=== PATIENT | female | born 1975 | race Caucasian/White ===

== ENCOUNTER 2017-05-18 14:53 | Inpatient (IN) | payer BC, OTHER ==
[~2017-05-18] VITALS: Ht 157.5 cm; Wt 45.4 kg
[2017-05-19 00:40] LABS: *URINE HCG, QUAL NEGATIVE (NEGATIVE)
--- NOTE | 2017-05-19 00:40 | NUR ---
PREADMISSION NOTE: 42 year old, healthy-looking, alert, well nourished caucasion female, seen in [facility] office. Patient denies any food or drug allergies and she states that she had " a few seizures as a child" only. Patient states, " I was about [age] years old and I was taking phenobarbital for awhile then". Patient denies any pre-existing medical or psychiatric conditions and she states that she takes no medications at home. Vital signs are: 96.8-99-18 108/59, O2 Sat 97%. Explanations given to patient regarding [facility] floor protocols ( Q4 hr V/S, medication reconciliation protocols, etc.). Patient states, " okay". Patient brought no medications with her and she denies any pain at this time.
--- NOTE | 2017-05-19 00:52 | NUR ---
0052 ADMISSION NOTE: Patient admitted ambulatory, to [facility], to room # 305, after being given a brief tour of floor by female PANTRY CHEF. Gait is steady, brisk. Patient is alert and oriented to person, place, day, date, time and her personal situation. Patient oriented to nurse call light, her bed and room. Patient denies any pain or other discomforts, but states that she is feeling sleepy now. Patient states that this admission is her first detox inpatient admission. Patient is admitted for (1) Alcohol, p.o., 3 beers daily for the past 30 days. Last alcohol intake was on 05/18/17, (1) mixed drink. Patient had her first drink at age 13. (2) Meth, snorted and smoked, daily " maybe a quarter, a small amount", for the past 14 months. Patient first tried Meth at age 16. Patient states that her steady use of these (2) substances was triggered by her 's infidelity mainly. Patient states that her longest period of sobriety was from 2009 to 2015. Vital signs are: 97.5-93-18 107/77, O2 Sat 100%, CIWA 3. Patient is 5 feet and 2 inches, and she weighs 100 lbs. 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 Patient did not name a PCP, though she did state that she has a sponsor and attends AA/NA meetings. Urine specimen obtained for UDS in Intake. Patient is friendly, cooperative and verbally appropriate when interacting with nurse, though her affect is slightly anxious and she is hyperverbal. When she is asked almost any question, she elaborates almost all her answers and must be prompted to refocus. Patient given water, juice and string cheese per request. Patient states, " I didn't eat most of the day". Bed is locked and in lowest position, padded bed rails are put up X 2 and call light on patient's bed. Fall/seizure precautions in place.
[2017-05-19 01:15] LABS: *AMPHETAMINE, URINE POSITIVE (NEGATIVE); *BARBITURATE, URINE NEGATIVE (NEGATIVE); *CANNABINOID, URINE NEGATIVE (NEGATIVE); *COCCAINE, URINE NEGATIVE (NEGATIVE); *OPIATE, URINE NEGATIVE (NEGATIVE); *PHENCYCLIDINE SCREEN,URINE NEGATIVE (NEGATIVE)
--- NOTE | 2017-05-19 01:30 | NUR ---
On the way back to [facility] floor from [facility] smoke break, patient was taken by floor ARCHITECTURE MANAGER ,to laboratory for admission blood work, where patient began to feel very lightheaded, very shortly after her blood was drawn. Patient's clothing was readjusted for coolness, patient was given juice and she was then assisted into wheelchair, and wheeled back to her room # 305 and assisted into her bed. Patient states, " I'm starting to feel much better now. I didn't really eat all day. Can I have some string cheese and crackers?" String cheese and crackers given per request. Bed rails up X 2 and call light in patient's easy reach.
[2017-05-19] MEDS ORDERED: THIAMINE HCL 200 MG/2 ML VIAL ONE (01:39)
[2017-05-19 01:53] LABS: BASOPHILS % (AUTO) 0.9 % (0.0-2.0); HEMATOCRIT 36.4 % (37-47); HEMOGLOBIN 12.7 G/DL (12.0-16.0); MEAN CORPUSCULAR HEMOGLOBIN 30.9 UUG (27.0-31.0); MEAN CORPUSCULAR HGB CONC 35 g/dL (32.0-37.0); MEAN CORPUSCULAR VOLUME 88.6 FL (81.0-99.0); NEUTROPHILS % (AUTO) 45.3 % (38.5-71.5); PLATELET COUNT (AUTO) 256 K/UL (150-450); RED BLOOD CELL COUNT(AUTO) 4.11 MIL/UL (4.2-5.4); WHITE BLOOD COUNT (AUTO) 5.8 K/UL (4.0-11.2)
[2017-05-19] MEDS ORDERED: IBUPROFEN 400 MG TABLET PO PRN (02:00)
[2017-05-19] MEDS ORDERED: LORAZEPAM 1 MG TABLET PO PRN ×2 (02:00)
[2017-05-19] MEDS ORDERED: LOPERAMIDE HCL 2 MG CAPSULE PO PRN ×2 (02:00)
[2017-05-19] MEDS ORDERED: HYDROXYZINE PAMOATE 25 MG CAPSULE PO PRN (02:00)
[2017-05-19] MEDS ORDERED: ONDANSETRON ODT 4 MG TAB.RAPDIS SL PRN (02:00)
[2017-05-19] MEDS ORDERED: MAG HYDROX/AL HYDROX/SIMETH 30 ML LIQUID UDC PO PRN (02:00)
[2017-05-19] MEDS ORDERED: LORAZEPAM 2 MG/1 ML VIAL IM PRN (02:00)
[2017-05-19] MEDS ORDERED: CLONIDINE HCL 0.1 MG TABLET PO PRN (02:00)
[2017-05-19] MEDS ORDERED: MAGNESIUM HYDROXIDE 30 ML LIQUID UDC PO PRN (02:00)
[2017-05-19] MEDS ORDERED: DICYCLOMINE HCL 20 MG TABLET PO PRN (02:00)
[2017-05-19] MEDS ORDERED: MIRALAX 17 GM POWD.PACK PO PRN (02:00)
[2017-05-19] MEDS ORDERED: THIAMINE HCL 200 MG/2 ML VIAL IM ONE (02:00)
[2017-05-19] MEDS ORDERED: ONDANSETRON 4 MG/2 ML VIAL IM PRN (02:00)
[2017-05-19] MEDS ORDERED: ACETAMINOPHEN 325 MG TABLET PO PRN (02:00)
[2017-05-19] MEDS ORDERED: diphenhydrAMINE 50 MG CAPSULE PO PRN (02:00)
[2017-05-19 02:05] LABS: ALANINE AMINOTRANSFERASE 19 U/L (14-59); ALKALINE PHOSPHATASE 92 U/L (50-136); AMYLASE 32 U/L (25-115); ASPARTATE AMINOTRANSFERASE 19 U/L (15-37); BILIRUBIN,TOTAL 0.2 mg/dL (0.2-1.0); CARBON DIOXIDE 32 mmol/L (21-32); CHLORIDE 104 mmol/L (98-107); CREATININE 1.1 mg/dL (0.6-1.3); GLUCOSE 93 mg/dL (74-106); LIPASE 128 U/L (73-393); POTASSIUM 3.6 mmol/L (3.5-5.1); TOTAL PROTEIN, SERUM 7.7 g/dL (6.4-8.2); UREA NITROGEN, BLOOD 17 mg/dL (7-18)
[2017-05-19 02:12] LABS: THYROID STIMULATING HORMONE 1.883 mIU/mL (0.358-3.740)
[2017-05-19 02:22] LABS: ETHANOL < 3 MG/DL (0-0)
[2017-05-19 04:00] VITALS: BP 90/60
--- NOTE | 2017-05-19 04:00 | NUR ---
V/S are: 98.2-70-12 90/60, O2 Sat 99%. Patient refused to do CIWA assess.
--- NOTE | 2017-05-19 06:30 | NUR ---
0630 Patient slept a total of 5 hours and she had 2 voids and 1 stools. Total intake was 500 ml p.o. No prn medications given this shift. V/SS afebrile, last CIWA was 3 at 0052. Patient refused to do CIWA assess at 0400. Patient is presently sleeping comfortably in stable condition with eyes closed and respirations quiet, even, unlabored at 12.
--- NOTE | 2017-05-19 07:05 | NUR ---
Patient sleeping soundly and not aroused for CIWA assess. CIWA assess ordered Q 4hr while awake.
--- NOTE | 2017-05-19 07:50 | NUR ---
START OF SHIFT NOTE Received report from night nurse, 42 year old female admitted for ETOH/Meth dependence. Patient currently not on any taper but PRN'S available for increased s/s of withdrawal. Per endorsement pt did not receive any PRN medication, last CIWA was 3, Slept for 5 hours. Patient received awake,alert and oriented x4, Educated patient regarding plan of care for the day and medication regimen with good verbal understanding. Safety measures in place. call light with in reach, will continue to monitor.
[2017-05-19 08:00] VITALS: BP 125/80
[2017-05-19] MEDS: THIAMINE HCL 100 MG TABLET PO SCH (08:44)
[2017-05-19] MEDS: FOLIC ACID 1 MG TABLET PO SCH (08:44)
[2017-05-19] MEDS: MULTIVITAMINS,THERAPEUTIC TABLET PO SCH (08:44)
[2017-05-19 12:00] VITALS: BP 102/62
[2017-05-19] MEDS ORDERED: NICOTINE 14 MG/24HR PATCH TD PRN (12:15)
[2017-05-19] MEDS ORDERED: NICOTINE POLACRILEX 4 MG GUM-PK OF TEN BC PRN (12:15)
--- NOTE | 2017-05-19 14:21 | NUR ---
Therapist prompted client about group times. Client stated she will attend group this afternoon.
[2017-05-19 16:00] VITALS: BP 103/60
--- NOTE | 2017-05-19 18:57 | NUR ---
END OF SHIFT NOTE Patient admitted for ETOH/Marijuana dependence. Patient currently not in any taper but PRN'S available for increased s/s of withdrawal. Pt did not receive any PRN during shift. Pt compliant with medication and plan of care. Encouraged Po fluids as tolerated. Pt's last CIWA score was 3 at 1600. Vital signs WNL. All needs met. Safety measures in place, call light within reach. Pt endorsed to night nurse in stable condition.
[2017-05-19 20:00] VITALS: BP 114/71
--- NOTE | 2017-05-19 20:00 | NUR ---
1999 Patient received awake, alert and just returning to her room # 305, from [facility] group in recreation room. Gait is brisk and steady. Upon seeing nurse, patient smiles and states, " Hi, I had a pretty good day today". Patient then proceeded to tell nurse about everything that she had done during the day. Patient states that she ate very well today, her regular diet " lunch downstairs" and her dinner tonight, and she is taking various fluids ad ninoska with no gastric issues. Patient states also, " I got some good rest too, so I'm feeling pretty good right now". Patient's color is tannish-pink and her skin is clean, warm, dry and intact. Patient is oriented to person, place, day,date, time and her personal situation. Patient denies any pain or other discomforts and she voices no requests for anything at this time. Vital signs are: 97.8-90-14 114/71, O2 Sat 100%, CIWA 2. Patient was admitted on 05/18/17 for Alcohol and Methamphetamine withdrawal and she is currently on PRN medications for withdrawal symptoms. Bed is locked and in lowest position, padded bed rails are up X 2 and call light in patient's bed. Fall/seizure precautions continue.
--- NOTE | 2017-05-20 | NUR ---
Patient refused to be awakened for V/S, CIWA to be done at this time.
--- NOTE | 2017-05-20 04:00 | NUR ---
Patient sleeping soundly and refused to be awakened for V/S, CIWA to be done at this time. Respirations deep, even, unlabored at 12.
--- NOTE | 2017-05-20 06:30 | NUR ---
0630 Patient slept a total of 7 hours and she had 2 voids and no stools. Total intake was 592 ml p.o. Patient had no Prn medications this shift. V/SS afebrile, last CIWA 2 at 1999. Patient is friendly, cooperative and verbally appropriate whenever interacting with nurse. Patient is presently sleeping soundly, comfortably in stable condition with eyes closed and respirations deep, even, unlabored at 12.
--- NOTE | 2017-05-20 07:05 | NUR ---
Patient is sleeping comfortably with eyes closed and respirations even, unlabored at 12. CIWA deferred, as CIWA is to be done Q 4hrs while patient is awake.
--- NOTE | 2017-05-20 07:44 | NUR ---
START OF SHIFT NOTE Received report from night nurse, 42 year old female admitted for ETOH/Meth dependence. Patient currently not on any taper but PRN'S available for increased s/s of withdrawal. Per endorsement pt did not receive any PRN medication, last CIWA was 2, Slept for 7 hours. Patient received awake,alert and oriented x4, Educated patient regarding plan of care for the day and medication regimen with good verbal understanding. Safety measures in place. call light with in reach, will continue to monitor.
[2017-05-20 08:00] VITALS: BP 103/65
[2017-05-20] MEDS: FOLIC ACID 1 MG TABLET PO SCH (08:37)
[2017-05-20] MEDS: MULTIVITAMINS,THERAPEUTIC TABLET PO SCH (08:38)
[2017-05-20] MEDS: THIAMINE HCL 100 MG TABLET PO SCH (08:38)
[2017-05-20] MEDS ORDERED: TUBERCULIN,PURIF.PROT.DERIV. 5 TU/0.1 ML TEST ID ONE (09:00)
[2017-05-20 12:00] VITALS: BP 140/77
[2017-05-20 12:11] LABS: HEPATITIS B SURFACE AG Negative (Negative)
--- NOTE | 2017-05-20 14:26 | NUR ---
Therapist prompted client to attend group. Client agreed to attend group rather than being alone.
[2017-05-20] MEDS ORDERED: LORAZEPAM 1 MG TABLET PO PRN ×2 (15:00)
[2017-05-20 16:00] VITALS: BP 124/72
[2017-05-20] MEDS ORDERED: NICO4GUM38 BC (18:22)
[2017-05-20] MEDS ORDERED: HYDR-3895 PO (18:22)
--- NOTE | 2017-05-20 19:16 | NUR ---
END OF SHIFT NOTE Patient admitted for ETOH/Marijuana dependence. Patient currently not in any taper but PRN'S available for increased s/s of withdrawal. Pt did not receive any PRN during shift. Pt compliant with medication and plan of care. Encouraged Po fluids as tolerated. Pt's last CIWA score was 1 at 1600. Vital signs WNL. Patient scheduled fro discharge in am. All needs met. Safety measures in place, call light within reach. Pt endorsed to night nurse in stable condition.
--- NOTE | 2017-05-20 19:17 | NUR ---
Start of shift note Received report from day shift nurse. Pt is a 42 yo female, A+Ox4, presenting to [facility] for ETOH/Meth dependence. Pt has NKA, is on Full code status, and on Regular diet. Pt is on Fall and Seizure precautions. Pt has HX of Seizure. Pt has been on PRN medications, tolerated well, and is due for discharge tomorrow. No s/s of distress noted at this time. Respirations even and unlabored. Will continue to monitor.
[2017-05-20 20:05] VITALS: BP 127/80
--- NOTE | 2017-05-20 21:11 | NUR ---
PRN Milk of Magnesia Pt c/o constipation and requested for PRN Milk of Magnesia. Medication given and tolerated well. Will reassess within 1 HR. Will continue to monitor.
[2017-05-20] MEDS ORDERED: METHOCARBAMOL 500 MG TABLET PO PRN (22:00)
--- NOTE | 2017-05-20 22:06 | NUR ---
PRN Robaxin Pt c/o neck muscle spasm pain 12/22 and requested for PRN Robaxin. Medication given and tolerated well. Will reassess within 1 HR. Will continue to monitor.
[2017-05-20] MEDS ORDERED: METHOCARBAMOL 750 MG TABLET ONE (22:15)
[2017-05-20] MEDS ORDERED: METHOCARBAMOL 500 MG TABLET ONE (22:17)
--- NOTE | 2017-05-20 23:05 | NUR ---
PRN Robaxin Reassessment Medication effective. Pt is resting well in bed. No s/s of ASE/distress noted at this time. Respirations even and unlabored. Will continue to monitor.
[2017-05-21 00:14] VITALS: BP 122/74
[2017-05-21 04:11] VITALS: BP 125/77
--- NOTE | 2017-05-21 07:00 | NUR ---
End of shift note Pt is a 42 yo female, A+Ox4, presenting to [facility] for ETOH/Meth dependence. Pt has NKA, is on Full code status, and on Regular diet. Pt is on Fall and Seizure precautions. Pt has HX of Seizure. Pt has been on PRN medications, tolerated well, and is due for discharge today. Pt was given PRN MOM @2111 and PRN Robaxin @2206. Pt slept for a total of 8 HRS. Last CIWA: 1 @0400. No s/s of distress noted at this time. Respirations even and unlabored. Will endorse to day shift nurse.
--- NOTE | 2017-05-21 07:33 | NUR ---
START OF SHIFT NOTE Received report from night nurse, 42 year old female admitted for ETOH/Meth dependence. Patient currently not on any taper but PRN'S available for increased s/s of withdrawal. Per endorsement pt received PRN MOM/Robaxin effective per night nurse, last CIWA was 2, Slept for 8 hours. Patient scheduled for discharge today at AM. Patient received awake,alert and oriented x4, Educated patient regarding plan of care for the day and medication regimen with good verbal understanding. Safety measures in place. call light with in reach, will continue to monitor.
[2017-05-21 08:00] VITALS: BP 114/63
[2017-05-21] MEDS: MULTIVITAMINS,THERAPEUTIC TABLET PO SCH (08:17)
[2017-05-21] MEDS: THIAMINE HCL 100 MG TABLET PO SCH (08:17)
[2017-05-21] MEDS: FOLIC ACID 1 MG TABLET PO SCH (08:17)
--- NOTE | 2017-05-21 09:40 | NUR ---
DISCHARGE NOTE Patient is in stable condition. Vital signs WNL,Patient is alert oriented x4, Skin intact warm and dry to touch. Patient denies any SI/HI ideations. All discharge paper work done signed and dated. Patient educated about discharge instructions, Pt verbalized understanding. Patient 's last CIWA score was 0. Patient discharged from [facility] on 05/21/17 at 0940. Patient left the building, Patient did not bring any medications with her to the unit. has been contracted and notified of Pt's discharge.
== END 2017-05-21 09:40 | disposition other institution (70) | DRG 895 ==
LOC: SRC 23:36
PROVIDERS: ADMIT Internal Medicine; ATTEND Internal Medicine
PROC: HZ2ZZZZ Detoxification Services for Substance Abuse Treatment (ICD-10-PCS; principal; 2017-05-18)
PROC: HZ41ZZZ Group Counseling for Substance Abuse Treatment, Behavioral (ICD-10-PCS; 2017-05-20)
DX: F10.230 Alcohol dependence with withdrawal, uncomplicated (principal); F15.23 Other stimulant dependence with withdrawal; Y90.0 Blood alcohol level of less than 20 mg/100 ml; F17.210 Nicotine dependence, cigarettes, uncomplicated; Z82.49 Family history of ischemic heart disease and other diseases of the circulatory system; Z81.1 Family history of alcohol abuse and dependence; Z82.3 Family history of stroke; Z86.69 Personal history of other diseases of the nervous system and sense organs
CPT/HCPCS: 36415; 70030-TC; 80307; 80324; 83690; 83735; 84443; 84703; 85025; 86580; 86592; 86705; 86803; 87340; 87806; G0480; J3411